=== PATIENT | male | born 1970 | race Caucasian/White ===

== ENCOUNTER 2017-03-09 13:05 | Emergency (ER) | payer OTHER ==
[~2017-03-09] VITALS: Ht 190.5 cm; Wt 85.3 kg
[2017-03-09 13:05] VITALS: BP_SYST 133
--- NOTE | 2017-03-09 13:10 | NUR ---
Patient triaged and placed in waiting room. VSS and patient appears in no acute distress at this time. Accompanied by self, awaiting available bed, and MD notified of need for MSE. EKG done, shown to Dr. Olivera. NO STEMI.
[2017-03-09 13:35] LABS: BASOPHILS # (AUTO) 0.1 K/uL (0.0-0.2); BASOPHILS % (AUTO) 0.7 % (0.0-2.0); EOSINOPHILS % (AUTO) 0.2 % (0.0-4.0); HEMATOCRIT 46.5 % (36-54); HEMOGLOBIN 14.8 g/dL (14.0-18.0); LYMPHOCYTES # (AUTO) 2.1 K/uL (1.0-5.5); LYMPHOCYTES % (AUTO) 26.8 % (20.5-51.5); MEAN CORPUSCULAR HEMOGLOBIN 26 pg (27-31); MEAN CORPUSCULAR HGB CONC 32 % (32-36); MEAN CORPUSCULAR VOLUME 82 fL (79.0-98.0); MONOCYTES # (AUTO) 0.7 K/uL (0.0-1.0); MONOCYTES % (AUTO) 9.3 % (1.7-9.3); NEUTROPHILS # (AUTO) 4.9 K/uL (1.8-7.7); PLATELET COUNT (AUTO) 311 K/uL (130-430); RED BLOOD CELL COUNT(AUTO) 5.68 MIL/uL (4.2-6.2); RED CELL DISTRIBUTION WIDTH 13.6 % (9.0-15.0); WHITE BLOOD COUNT (AUTO) 7.8 K/uL (4.8-10.8)
[2017-03-09 13:40] LABS: CALCIUM 9.3 mg/dL (8.4-11.0); CREATININE 0.81 mg/dL (0.55-1.30); POTASSIUM 3.9 mmol/L (3.5-5.1)
[2017-03-09 13:45] LABS: INR 0.9 (0.80-1.20)
[2017-03-09 13:46] LABS: ALBUMIN 4.1 g/dL (3.4-4.8); TOTAL BILIRUBIN 0.3 mg/dL (0.0-1.0)
[2017-03-09 14:09] LABS: CREATINE KINASE MB 5.1 ng/mL (0-3.6)
--- NOTE | 2017-03-09 14:30 | NUR ---
Pt is resting comfortably in bed with complaints of pain in the chest, no noted SOB, Dr Olivera is aware and orders will be put in. Will continue to monitor.
--- NOTE | 2017-03-09 15:00 | NUR ---
Placed in room 04. Placed on orthodontist assistant, blood pressure machine and pulse oximeter. To gown for exam. Side rails up. Report given to Carl.
--- NOTE | 2017-03-09 15:05 | NUR ---
Pt complains of chest pain that radiates to bilateral armpits for the past week, pt states has been taking tylenol and motrin the first couple of days, then started drinking beer for the last couple of days to take away the pain. Pt states pain is 9/10, denies n/v, diarhea or fever. Pt was able to ambulate into the ER with no noted difficulty. No other injuries/complaints per pt or noted.
--- NOTE | 2017-03-09 15:26 | NUR ---
ER Dr. Olivera at bedside examining patient.
[2017-03-09] MEDS ORDERED: HYDROcodone/ACETAMIN 10-325 MG TAB PO ONE (16:00)
[2017-03-09 16:21] VITALS: BP_SYST 124
--- NOTE | 2017-03-09 16:21 | NUR ---
Patient given written and verbal discharge instructions and verbalizes understanding. ER MD discussed with patient the results and treatment provided. Patient in stable condition. ID arm band removed. Rx of [place] given. Patient educated on pain management and to follow up with PMD. Pain Scale 3. Dr. Olivera is aware, pain medication given here and prescription home. Opportunity for questions provided and answered.
== END 2017-03-09 16:21 | disposition home or self-care (01) ==
LOC: SED 13:05
DX: R07.89 Other chest pain (principal); F10.10 Alcohol abuse, uncomplicated; F17.200 Nicotine dependence, unspecified, uncomplicated; Y90.6 Blood alcohol level of 120-199 mg/100 ml
CPT/HCPCS: 36415; 71010; 80053; 82550; 82553; 83880; 84484; 85025; 85610; 85730; 93005; 99285; G0482